=== PATIENT | female | born 1955 | race African-American/Black ===

== ENCOUNTER 2019-01-19 11:40 | Outpatient (CLI) | payer MEDICARE ==
--- NOTE | 2019-01-19 12:11 | RAD ---
2 views right hip: 01/19/2019 COMPARISON: None HISTORY: Intermittent right hip pain FINDINGS: There is prominent superior joint space narrowing involving the right hip. There is signifi cant right acetabular osteophyte formation seen laterally. There is degenerative change involving the right sacroiliac joint. No displaced fracture or evidence of dislocation is seen. IMPRESSION: Degenerative joint disease as detailed above.
--- NOTE | 2019-01-19 12:12 | RAD ---
2 views of left knee: 01/19/2019 COMPARISON: None HISTORY: Left knee pain FINDINGS: Mild medial and lateral compartment narrowing. Mild osteophyte formation of the lateral fem oral condyle. No acute fracture or dislocation. No knee joint effusion. IMPRESSION: No acute findings.
--- NOTE | 2019-01-19 12:13 | RAD ---
2 views right knee: 01/19/2019 COMPARISON: None HISTORY: Pain FINDINGS: No fracture or dislocation. Mild medial compartment narrowing.. IMPRESSION: No acute findings.
== END 2019-01-19 11:41 | disposition home or self-care (01) ==
LOC: BICRAD 11:40
PROVIDERS: ATTEND Internal Medicine Rheumatology
DX: M25.551 Pain in right hip (principal); M25.561 Pain in right knee; M25.562 Pain in left knee; M16.11 Unilateral primary osteoarthritis, right hip

== ENCOUNTER 2022-10-21 10:18 | Outpatient (CLI) | payer MEDICARE | END 2022-10-21 10:19 | disposition home or self-care (01) | LOC: RAD 10:18 | PROVIDERS: ATTEND Physical Medicine & Rehabilitation | DX: M54.50 Low back pain, unspecified (principal); M47.816 Spondylosis without myelopathy or radiculopathy, lumbar region | CPT/HCPCS: 72100 ==

== ENCOUNTER 2025-03-13 11:40 | Inpatient (IN) | payer MEDICARE ==
[2025-03-13 16:07] LABS: Hematocrit 36.4 % (36.0-47.0); Hemoglobin 11.3 g/dL (12.0-16.0); Mean Corpuscular Hemoglobin 26.9 pg (27.0-31.0); Mean Corpuscular Volume 86.7 fL (78.0-98.0); Platelet Count 349 10x3/uL (130-400); Red Blood Cell (RBC) Count 4.20 mill/uL (4.20-5.40); White Blood Cell (WBC) Count 25.23 10x3/uL (4.8-10.8)
[2025-03-13 16:12] LABS: INR-International Normal Ratio 1.1; PTT 35.2 sec (22.9-36.1); Prothrombin Time 14.6 sec (12.0-14.7)
[2025-03-13 16:20] LABS: ALT (SGPT) Less than 7 U/L (Less than 34); AST (SGOT) 15 U/L (11-34); Albumin 3.2 g/dL (3.1-4.5); Alkaline Phosphatase 90 U/L (40-110); Anion Gap 14 mmol/L (10-20); BUN (Urea Nitrogen) 17 mg/dL (9.8-20.1); Bilirubin, Total 1.1 mg/dL (0.3-1.2); Calc. Creatinine Clearance 0 mL/min (70-130); Calcium 8.5 mg/dL (7.8-10.44); Carbon Dioxide 26 mmol/L (23-31); Chloride 103 mmol/L (98-107); Globulin 3.5 g/dL (2.4-3.5); Glucose 112 mg/dL (80-115); Potassium 3.1 mmol/L (3.5-5.1); Sodium 140 mmol/L (136-145)
[2025-03-13 16:23] LABS: Actual Bicarbonate (HCO3v) 28.2 mEq/L (22-28); Base Excess 0.6 mEq/L (-2.0 to +3.0); Calcium, Ionized (venous) 1.09 mmol/L (1.16-1.32); Chloride (VBG) 101 mmol/L (98-106); Hematocrit-VBG 38 % (36.0-47.0); Hemoglobin (Hb) 12.8 g/dL (11.7-16.1); Potassium (VBG) 3.17 mmol/L (3.70-5.30); Sodium 141 mmol/L (133-146)
[2025-03-13 16:24] LABS: Macrocytosis SLIGHT = 6-15 cells HPF (0-5); Ovalocytes SLIGHT = 2-5 cells HPF (0-1); Platelet Adequacy Comment Platelets Normal; Polychromasia SLIGHT = 2-3 cells HPF (0-2); Smudge Cells 1.0 %; Toxic Granulation SLIGHT
[2025-03-13] MEDS ORDERED: Ondansetron PF 4 MG/2 ML Vial IVP PRN (18:03)
[2025-03-13] MEDS ORDERED: Acetaminophen 500 MG TAB PO PRN (18:03)
[2025-03-13] MEDS ORDERED: Benzonatate 100 MG CAP PO PRN (18:03)
[2025-03-13 19:01] VITALS: BMI 40.8
[2025-03-13] MEDS: Famotidine 20 MG TAB PO SCH (19:52)
[2025-03-13] MEDS: cefTRIAXone\\ROCEPHIN 2 GM in Sodium Chloride 0.9% 100 ML IVPB SCH (19:52)
[2025-03-13] MEDS: Azithromycin 500 MG in Sodium Chloride 0.9% 250 ML 250 ML IVPB SCH (21:59)
[2025-03-14 03:58] LABS: #Basophils 0.04 10x3/uL (0.0-0.2); #Eosinophils 0.11 10x3/uL (0.0-0.7); #Monocytes 0.71 10x3/uL (0.11-0.59); #Neutrophils 10.79 10x3/uL (1.40-6.50); %Basophils 0.3 % (0.0-1.0); %Eosinophils 0.8 % (0.0-10.0); %Lymphocytes 17.3 % (21.0-51.0); %Monocytes 5.0 % (0.0-10.0); %Neutrophils 76.2 % (42.0-75.0); Hematocrit 32.2 % (36.0-47.0); Hemoglobin 10.0 g/dL (12.0-16.0); Mean Corpuscular Hemoglobin 27.4 pg (27.0-31.0); Mean Corpuscular Volume 88.2 fL (78.0-98.0); Platelet Count 300 10x3/uL (130-400); Red Blood Cell (RBC) Count 3.65 mill/uL (4.20-5.40); White Blood Cell (WBC) Count 14.16 10x3/uL (4.8-10.8)
[2025-03-14 04:09] LABS: ALT (SGPT) Less than 7 U/L (Less than 34); AST (SGOT) 13 U/L (11-34); Albumin 2.9 g/dL (3.1-4.5); Alkaline Phosphatase 80 U/L (40-110); Anion Gap 12 mmol/L (10-20); BUN (Urea Nitrogen) 13 mg/dL (9.8-20.1); Bilirubin, Total 0.7 mg/dL (0.3-1.2); Calc. Creatinine Clearance 111 mL/min (70-130); Calcium 8.3 mg/dL (7.8-10.44); Carbon Dioxide 26 mmol/L (23-31); Chloride 108 mmol/L (98-107); Globulin 3.2 g/dL (2.4-3.5); Glucose 126 mg/dL (80-115); Potassium 2.9 mmol/L (3.5-5.1); Sodium 143 mmol/L (136-145)
[2025-03-14] MEDS ORDERED: Electrolyte Replacement Protocol 1 EACH FS SCH (05:00)
[2025-03-14] MEDS: Metoprolol Succinate XL 25 MG ER.TAB PO SCH (09:01)
[2025-03-14] MEDS: Lisinopril 20 MG TAB PO SCH (09:01)
[2025-03-14] MEDS: Allopurinol 100 MG TAB PO SCH (09:02)
[2025-03-14] MEDS: Gabapentin 300 MG CAP PO SCH ×2 (09:02→20:39)
[2025-03-14] MEDS: Pantoprazole 40 MG DR.TAB PO SCH (09:02)
[2025-03-14 15:09] LABS: Anion Gap 12 mmol/L (10-20); BUN (Urea Nitrogen) 11 mg/dL (9.8-20.1); Calc. Creatinine Clearance 117 mL/min (70-130); Calcium 8.7 mg/dL (7.8-10.44); Carbon Dioxide 23 mmol/L (23-31); Chloride 110 mmol/L (98-107); Glucose 183 mg/dL (80-115); Potassium 3.2 mmol/L (3.5-5.1); Sodium 142 mmol/L (136-145)
[2025-03-16 04:33] LABS: #Basophils 0.05 10x3/uL (0.0-0.2); #Eosinophils 0.17 10x3/uL (0.0-0.7); #Monocytes 0.68 10x3/uL (0.11-0.59); #Neutrophils 5.94 10x3/uL (1.40-6.50); %Basophils 0.5 % (0.0-1.0); %Eosinophils 1.9 % (0.0-10.0); %Lymphocytes 24.6 % (21.0-51.0); %Monocytes 7.5 % (0.0-10.0); %Neutrophils 65.2 % (42.0-75.0); Hematocrit 34.7 % (36.0-47.0); Hemoglobin 10.5 g/dL (12.0-16.0); Mean Corpuscular Hemoglobin 26.4 pg (27.0-31.0); Mean Corpuscular Volume 87.4 fL (78.0-98.0); Platelet Count 333 10x3/uL (130-400); Red Blood Cell (RBC) Count 3.97 mill/uL (4.20-5.40); White Blood Cell (WBC) Count 9.11 10x3/uL (4.8-10.8)
[2025-03-16 04:49] LABS: Anion Gap 14 mmol/L (10-20); BUN (Urea Nitrogen) 5 mg/dL (9.8-20.1); Calc. Creatinine Clearance 128 mL/min (70-130); Calcium 9.0 mg/dL (7.8-10.44); Carbon Dioxide 24 mmol/L (23-31); Chloride 105 mmol/L (98-107); Glucose 121 mg/dL (80-115); Magnesium 1.5 mg/dL (1.6-2.6); Potassium 3.0 mmol/L (3.5-5.1); Sodium 140 mmol/L (136-145)
[2025-03-16] MEDS: Magnesium 2 GM/50 ML(in water) Premix IVPB SCH (06:16)
[2025-03-16 10:32] LABS: Potassium 3.3 mmol/L (3.5-5.1)
[2025-03-16 18:53] LABS: Potassium 3.7 mmol/L (3.5-5.1)
[2025-03-17 13:41] VITALS: BP 128/85; TEMP 99
== END 2025-03-17 13:30 | disposition home or self-care (01) | DRG 871 ==
LOC: ERS 11:40 → PCU 17:31
PROVIDERS: ADMIT Family Medicine; ATTEND Internal Medicine
DX: A41.9 Sepsis, unspecified organism (principal); J18.9 Pneumonia, unspecified organism; J96.01 Acute respiratory failure with hypoxia; Z68.41 Body mass index [BMI] 40.0-44.9, adult; E03.9 Hypothyroidism, unspecified; R65.20 Severe sepsis without septic shock; I10 Essential (primary) hypertension; E87.6 Hypokalemia; E66.01 Morbid (severe) obesity due to excess calories; M10.9 Gout, unspecified; K21.9 Gastro-esophageal reflux disease without esophagitis; F32.A Depression, unspecified; Z90.49 Acquired absence of other specified parts of digestive tract; Z98.890 Other specified postprocedural states; Z98.891 History of uterine scar from previous surgery; Z90.710 Acquired absence of both cervix and uterus; Z98.84 Bariatric surgery status; Z88.5 Allergy status to narcotic agent; Z79.890 Hormone replacement therapy
CPT/HCPCS: 36415; 36416; 71045; 80048; 80053; 82805; 83036; 83605; 83735; 83880; 84484; 85025; 85610; 85730; 87040; 87428; 93005; 94760; 96374; J0456; J0696; J2543; J3475; J7030; J7050